=== PATIENT | female | born 1980 | race Caucasian/White ===

== ENCOUNTER → 2017-01-29 | Outpatient (CLI) | payer MEDICAID | LOC: FIMAGING 14:53 | PROVIDERS: ATTEND Nurse Practitioner Women's Health | DX: N63 Unspecified lump in breast (principal) | CPT/HCPCS: G0204 ==

== ENCOUNTER 2017-03-12 00:44 | Emergency (ER) | payer MEDICAID ==
[2017-03-12 00:56] VITALS: TEMP 98.2
--- NOTE | 2017-03-12 01:06 | CPEKG ---
Heart Rate: 79 RR Interval: 759 P-R Interval: 152 QRSD Interval: 90 QT Interval: 368 QTC Interval: 422 P [place]: 29 QRS [place]: 47 T Wave [place]: 48 EKG Severity - NORMAL ECG - EKG Impression: SINUS RHYTHM Electronically Signed By: Arcelia Ramos 12-Mar-2017 07:02:46
[2017-03-12 01:38] LABS: % IMMATURE GRANULYOCYTES 0.4 % (0.0-1.1); ABSOLUTE IMMATURE GRANULOCYTES 0.03 10^3/uL (0.00-0.10); ADD DIFF? NO; ADD MORPH? NO; ADD SCAN? NO; ATYPICAL LYMPHOCYTE FLAG 40 (0-99); FRAGMENT RBC FLAG 0 (0-99); HEMATOCRIT 45.4 % (38.0-47.0); HEMOGLOBIN 15.1 g/dL (12.6-16.3); LEFT SHIFT FLG 0 (0-99); LIPEMIA HEMOLYSIS FLAG 80 (0-99); MEAN CELL HEMOGLOBIN 33.1 pg (27.9-34.1); MEAN CELL HEMOGLOBIN CONCENTR. 33.3 g/dL (32.4-36.7); MEAN CELL VOLUME 99.6 fL (81.5-99.8); MEAN PLATELET VOLUME 10.8 fL (8.7-11.7); PLATELET CLUMPS FLAG 30 (0-99); PLATELET COUNT 253 10^3/uL (150-400); RED BLOOD CELL COUNT 4.56 10^6/uL (4.18-5.33); RED CELL DISTRIBUTION WIDTH 13.3 % (11.5-15.2)
[2017-03-12 01:44] LABS: ANION GAP 14 mEq/L (8-16); CALCIUM 9.5 mg/dL (8.5-10.4); CARBON DIOXIDE 26 mEq/l (22-31); CHLORIDE 104 mEq/L (97-110); CREATININE 0.7 mg/dL (0.6-1.0); GLOMERULAR FILTRATION RATE > 60; GLUCOSE 90 mg/dL (70-100); POTASSIUM 4.2 mEq/L (3.5-5.2); SODIUM 144 mEq/L (134-144)
[2017-03-12 01:56] LABS: TROPONIN I < 0.012 ng/mL (0-0.034)
--- NOTE | 2017-03-12 02:22 | EDPHY ---
H & P Stated Complaint: SOB HPI/ROS: HPI The patient presents with chest pain which has been present for the last 1 day and getting progressively worse. It is in her right chest, feels sharp in nature, worse with movement and deep breaths. She has had a cough for the last 6 months which is productive and worse in the morning. She does smoke cigarettes. Two weeks ago she had a lumpectomy of her left breast. She took ibuprofen for the pain today which did not help much.. REVIEW OF SYSTEMS Constitutional: No fever, no chills. Eyes: No discharge. ENT: No sore throat. Cardiovascular: Positive for chest pain, no palpitations. Respiratory: No cough, no shortness of breath. Gastrointestinal: No abdominal pain, no vomiting. Genitourinary: No hematuria. Musculoskeletal: No back pain. Skin: No rashes. Neurological: No headache. PMHx: Status post left-sided lumpectomy Soc Hx: Cigarette smoker PHYSICAL General Appearance: Alert, no distress Eyes: Pupils equal and round no pallor or injection ENT, Mouth: Mucous membranes moist Respiratory: There are no retractions, lungs are clear to auscultation Cardiovascular: Regular rate and rhythm, there is right-sided chest wall pain Gastrointestinal: Abdomen is soft and non-tender, no masses, bowel sounds normal Neurological: A&O, moves all extremities Skin: Warm and dry, no rashes Musculoskeletal: Neck is supple non tender Extremities: symmetrical, full range of motion Psychiatric: Patient is oriented X 3, there is no agitation Source: Patient Exam Limitations: No limitations - Personal History LMP (Females 10-55): Now Current Tetanus/Diphtheria Vaccine: Yes Current Tetanus Diphtheria and Acellular Pertussis (TDAP): Yes Tetanus Vaccine Date: 2013 - Medical/Surgical History Hx Asthma: No Hx Chronic Respiratory Disease: No Hx Diabetes: No Hx Cardiac Disease: No Hx Renal Disease: No Hx Cirrhosis: No Hx Alcoholism: No Hx HIV/AIDS: No Hx Splenectomy or Spleen Trauma: No Other PMH: L lumpectomy, PNA, - Social History Smoking Status: Current every day smoker Constitutional: Initial Vital Signs Temperature (C) 36.8 C 03/12/17 00:52 Heart Rate 96 03/12/17 00:52 Respiratory Rate 16 03/12/17 00:52 Blood Pressure 133/97 H 03/12/17 00:52 O2 Sat (%) 96 07/13/17 00:52 O2 Delivery Mode Room Air Allergies/Adverse Reactions: No Known Allergies Allergy (Unverified 03/12/17 00:50) Home Medications: Medication Instructions Recorded Subutex 04/24/13 Calcium 03/12/17 Oregano Oil 03/12/17 VITAMIN D 03/12/17 Vitamin A 03/12/17 Vitamin B-12 03/12/17 Vitamin B6 03/12/17 Zinc 03/12/17 Medical Decision Making Differential Diagnosis: This is a 36-year-old healthy female who presents with chest pain for the last 1 day. On exam, she is well-appearing, she has normal vital signs, she has chest wall tenderness. Differential diagnosis includes costochondritis, pulmonary embolism, pericarditis. In the emergency room, labs and studies were checked and were unremarkable. Including D-dimer, EKG, chest x-ray. I feel she most likely is suffering from costochondritis and I have explained this to her. I have recommended that she use ibuprofen for pain. She is in agreement with this plan. - Data Points Laboratory Results: Laboratory Results 03/12/17 01:00 03/12/17 01:00 03/12/17 03/12/17 03/12/17 01:00 01:00 01:00 WBC 8.12 10^3/uL 10^3/uL (3.80-9.50) RBC 4.56 10^6/uL 10^6/uL (4.18-5.33) Hgb 15.1 g/dL g/dL (12.6-16.3) Hct 45.4 % % (38.0-47.0) MCV 99.6 fL fL (81.5-99.8) MCH 33.1 pg pg (27.9-34.1) MCHC 33.3 g/dL g/dL (32.4-36.7) RDW 13.3 % % (11.5-15.2) Plt Count 253 10^3/uL 10^3/uL (150-400) MPV 10.8 fL fL (8.7-11.7) Neut % (Auto) 46.7 % % (39.3-74.2) Lymph % (Auto) 43.0 % % (15.0-45.0) [place] % (Auto) 7.3 % % (4.5-13.0) Eos % (Auto) 1.6 % % (0.6-7.6) Baso % (Auto) 1.0 % % (0.3-1.7) Nucleat RBC Rel Count 0.0 % % (0.0-0.2) Absolute Neuts (auto) 3.80 10^3/uL 10^3/uL (1.70-6.50) Absolute Lymphs (auto) 3.49 10^3/uL H 10^3/uL (1.00-3.00) Absolute Monos (auto) 0.59 10^3/uL 10^3/uL (0.30-0.80) Absolute Eos (auto) 0.13 10^3/uL 10^3/uL (0.03-0.40) Absolute Basos (auto) 0.08 10^3/uL 10^3/uL (0.02-0.10) Absolute Nucleated RBC 0.00 10^3/uL 10^3/uL (0-0.01) Immature Gran % 0.4 % % (0.0-1.1) Immature Gran # 0.03 10^3/uL 10^3/uL (0.00-0.10) D-Dimer 0.47 ug/mLFEU ug/mLFEU (0.00-0.50) Sodium 144 mEq/L mEq/L (134-144) Potassium 4.2 mEq/L mEq/L (3.5-5.2) Chloride 104 mEq/L mEq/L (97-110) Carbon Dioxide 26 mEq/l mEq/l (22-31) Anion Gap 14 mEq/L mEq/L (8-16) BUN 12 mg/dL mg/dL (7-23) Creatinine 0.7 mg/dL mg/dL (0.6-1.0) Estimated GFR > 60 Glucose 90 mg/dL mg/dL (70-100) Calcium 9.5 mg/dL mg/dL (8.5-10.4) Troponin I < 0.012 ng/mL ng/mL (0-0.034) Departure - Departure Disposition: Home, Routine, Self-Care Clinical Impression: Chest pain Qualifiers: Chest pain type: chest pain on breathing Qualified Code(s): R07.1 - Chest pain on breathing Condition: Good Instructions: Pleurisy (ED) Additional Instructions: You should take ibuprofen 400 mg every 6 hours as needed for pain. You can use ice packs or heat packs as well. You should be better in the next 1-2 weeks. Referrals: LINDA LONG [Other] - As per Instructions
[2017-03-12 02:37] VITALS: BP 103/59; PULSE 59; RESP 19; O2SAT 93
== END 2017-03-12 02:37 | disposition home or self-care (01) ==
DX: R07.1 Chest pain on breathing (principal); F17.210 Nicotine dependence, cigarettes, uncomplicated

== ENCOUNTER 2017-04-08 21:47 | Emergency (ER) | payer MEDICAID ==
[2017-04-08 22:00] VITALS: TEMP 99.1
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
[2017-04-08 23:12] VITALS: BP 115/85; PULSE 97; RESP 18; O2SAT 92
== END 2017-04-08 23:11 | disposition home or self-care (01) ==
DX: S62.307A Unspecified fracture of fifth metacarpal bone, left hand, initial encounter for closed fracture (principal); S63.90XA Sprain of unspecified part of unspecified wrist and hand, initial encounter; V86.99XA Unspecified occupant of other special all-terrain or other off-road motor vehicle injured in nontraffic accident, initial encounter
CPT/HCPCS: L3925

== ENCOUNTER 2017-09-03 20:02 | Emergency (ER) | payer MEDICAID ==
[2017-09-03 20:13] VITALS: TEMP 98.4
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
[2017-09-03] MEDS ORDERED: LORazepam 2 MG/ML INJ IVP ONE (21:19)
[2017-09-03] MEDS ORDERED: NS 1,000 ML IV ONE (21:19)
[2017-09-03 21:42] LABS: PLATELET COUNT 175 10^3/uL (150-400)
[2017-09-03 21:48] VITALS: O2SAT 96
[2017-09-03 22:30] VITALS: BP 90/79; PULSE 85; RESP 16
== END 2017-09-03 22:29 | disposition home or self-care (01) ==
DX: K58.1 Irritable bowel syndrome with constipation (principal); F43.9 Reaction to severe stress, unspecified; E86.9 Volume depletion, unspecified; F17.200 Nicotine dependence, unspecified, uncomplicated
CPT/HCPCS: 96374; J2060

== ENCOUNTER → 2018-05-27 | Outpatient (CLI) | payer MEDICAID | LOC: FIMAGING 10:22 | PROVIDERS: ATTEND Physician Assistant | DX: K70.10 Alcoholic hepatitis without ascites (principal); R16.0 Hepatomegaly, not elsewhere classified; K70.0 Alcoholic fatty liver; F10.10 Alcohol abuse, uncomplicated ==

== ENCOUNTER 2018-07-07 08:39 | Day surgery (SDC) | payer MEDICAID ==
[2018-07-07] MEDS ORDERED: LIDOCAINE 1% 2 ML INJ ID PRN (08:58)
[2018-07-07] MEDS ORDERED: LR 1,000 ML IV ONE (08:58)
--- NOTE | 2018-07-07 10:10 | PDGENHP ---
History and Physical - Chief Complaint abdominal pain, abnormal xrays - History of Present Illness pleasant 38 yr old with hx of ETOH abuse presents to [facility] for EGD/COLON to work- up abd pain and abnormal xrays. Pt reports GERD, nausea, and constipation. History Information - Allergies/Home Medication List Allergies/Adverse Reactions: No Known Allergies Allergy (Verified 04/15/18 09:20) Home Medications: Buprenorphine HCl/Naloxone HCl [Suboxone 2 mg-0.5 mg SL Film] 0.5 film SL BID [Last Taken 04/14/18] Cetirizine [ZyrTEC 10 mg (*)] 10 mg PO DAILY 04/15/18 [Last Taken 04/14/18] Herbals/Supplements -Info Only 1 ea PO DAILY 04/15/18 [Last Taken Unknown] I have personally reviewed and updated: family history, medical history, social history, surgical history - Past Medical History no pertinent PMH Additional medical history: Suspected alcohol abuse versus alcoholism. Reported irritable bowel syndrome. Denies any other medical history but preliminary review of her home med list indicates Suboxone and Ativan, for unclear reasons - Surgical History Reports: no pertinent surgical hx Additional surgical history: Left breast biopsy 2017. Last Pap smear approximately 2 years ago - Family History Positive for: cancer Additional family history: Family history of kidney stones, no family history of inflammatory bowel disorders, liver disorders. Sibling with drug addiction, second-degree relative with alcoholism - Social History Smoking Status: Current some day smoker Alcohol Use: Heavy Drug Use: None Additional social history: Takes care of 4 kids Review of Systems Review of Systems: ROS: 10pt was reviewed & negative except for what was stated in HPI & below Physical Exam Physical Exam: Temp Pulse Resp BP Pulse Ox 37.3 C 73 10 L 119/79 91 L 07/07/18 09:12 07/07/18 09:12 07/07/18 09:12 07/07/18 09:12 07/07/18 09:12 Constitutional: no apparent distress Eyes: PERRL Ears, Nose, Mouth, Throat: moist mucous membranes Cardiovascular: regular rate and rhythym Respiratory: no respiratory distress Gastrointestinal: normoactive bowel sounds Skin: warm Musculoskeletal: full muscle strength Neurologic: AAOx3 Psychiatric: interacting appropriately Assessment & Plan Assessment: GERD, Nausea, Abdominal Pain, Abn CT Plan: EGD and Colonoscopy
[2018-07-07] MEDS ORDERED: PROPOFOL/EMULSION 500 MG/50 ML BOTTLE IV ONE (10:23)
--- NOTE | 2018-07-07 10:45 | GIREPORT ---
[facility] Surgical Services - Endoscopy Department Patient Name: Lian Lea Procedure Date: 07/07/2018 10:04 AM Patient Type: Outpatient Attending MD/ ER Physician: Argentina Mason MD Procedure: Upper GI endoscopy Indications: Epigastric abdominal pain, Dyspepsia, Heartburn Providers: Argentina Mason MD Medicines: Sedation Required Anesthesia Staff Assistance Complications: No immediate complications. Description of Procedure: After obtaining informed consent, the endoscope was passed under direct vision. Throughout the procedure, the patient's blood pressure, pulse, and oxygen saturations were monitored continuously. The Endoscope was intro duced through the mouth, and advanced to the second part of duodenum. [facility] was accomplished without difficulty. The patient tolerated th e procedure well. Findings: The examined esophagus was normal. Diffuse mild inflammation characterized by congestion (edema) and eryth edmundo was found in the entire examined stomach. Biopsies were taken with a co ld forceps for histology. The examined duodenum was normal. Biopsies for histology were taken wit h a cold forceps for evaluation of celiac disease. Estimated Blood Loss: Estimated blood loss: none. Post Op Diagnosis: - Normal esophagus. - Gastritis. Biopsied. - Normal examined duodenum. Biopsied. Recommendation: - Written discharge instructions were provided to the patient. - The signs and symptoms of potential delayed complications were discus sed with the patient. - Patient has a contact number available for emergencies. - Return to normal activities tomorrow. - Resume previous diet. - Continue present medications. - Await pathology results. Attending Participation: I personally performed the entire procedure. Argentina Mason MD Argentina Mason MD 07/07/2018 10:44:57 AM This report has been signed electronicallyArgentina Mason MD Number of Addenda: 0 Note Initiated On: 07/07/2018 10:04 AM [email or web address]
--- NOTE | 2018-07-07 10:46 | GIREPORT ---
[facility] Surgical Services - Endoscopy Department Patient Name: Lian Lea Procedure Date: 07/07/2018 10:05 AM Patient Type: Outpatient Attending MD/ ER Physician: Argentina Mason MD Procedure: Colonoscopy Indications: Generalized abdominal pain, Abnormal CT of the GI tract, Change in junior l habits Providers: Argentina Mason MD Medicines: Sedation Required Anesthesia Staff Assistance Complications: No immediate complications. Description of Procedure: After obtaining informed consent, the scope was passed under direct vis ion. Throughout the procedure, the patient's blood pressure, pulse, and oxyg en saturations were monitored continuously. The Colonoscope with irrigatio n channel was introduced through the anus and advanced to the cecum, identified by appendiceal orifice and ileocecal valve. The colonoscopy was performed without difficulty. The patient tolerated the procedure well. The quality of the bowel preparation was good. The ileocecal valve, appendi ceal orifice, and rectum were photographed. Findings: The colon (entire examined portion) appeared normal. Biopsies were take n with a cold forceps for histology. Estimated Blood Loss: Estimated blood loss: none. Post Op Diagnosis: - The entire examined colon is normal. Biopsied. Recommendation: - Written discharge instructions were provided to the patient. - The signs and symptoms of potential delayed complications were discus sed with the patient. - Patient has a contact number available for emergencies. - Return to normal activities tomorrow. - Resume previous diet. - Continue present medications. - Await pathology results. - Repeat colonoscopy in 5 years for screening purposes. Attending Participation: I personally performed the entire procedure. Argentina Mason MD Argentina Mason MD 07/07/2018 10:46:19 AM This report has been signed electronicallyArgentina Mason MD Number of Addenda: 0 Note Initiated On: 07/07/2018 10:05 AM Total Procedure Duration Time 0 hours 8 minutes 59 seconds [email or web address]
[2018-07-07] MEDS ORDERED: fentaNYL 100 MCG/2 ML INJ IVP PRN (10:52)
[2018-07-07] MEDS ORDERED: ONDANSETRON 4 MG/2 ML VIAL IVP PRN (10:52)
[2018-07-07] MEDS ORDERED: NALOXONE HCL 0.4 MG/ML INJ IVP PRN (10:52)
--- NOTE | 2018-07-07 10:52 | POSTANESTH ---
Post Anesthetic Evaluation Cardiovascular Status: Normal, Stable Respiratory Status: Normal, Stable Level of Consciousness/Mental Status: Can Participate in Eval Pain Control: Adequate, Prn Tx Ordered Nausea/Vomiting Control: Adequate, Prn Tx Ordered Complications Possibly Related to Anesthesia: None Noted
--- NOTE | 2018-07-07 10:52 | PDANEPAE ---
ANE Past Medical History - Cardiovascular History Hx Hypertension: No Hx Arrhythmias: No Hx Chest Pain: No Hx Coronary Artery / Peripheral Vascular Disease: No Hx CHF / Valvular Disease: No Hx Palpitations: No - Pulmonary History Hx COPD: No Hx Asthma/Reactive Airway Disease: No Hx Recent Upper Respiratory Infection: No Hx Oxygen in Use at Home: No Hx Sleep Apnea: No Sleep Apnea Screening Result - Last Documented: Negative - Neurologic History Hx Cerebrovascular Accident: No Hx Seizures: No Hx Dementia: No - Endocrine History Hx Diabetes: No - Renal History Hx Renal Disorders: No - Liver History Hx Hepatic Disorders: No - Neurological & Psychiatric Hx Hx Neurological and Psychiatric Disorders: No - Cancer History Hx Cancer: No - Congenital Disorder History Hx Congenital Disorders: No - GI History Hx Gastrointestinal Disorders: Yes Gastrointestinal History Comment: NAUSEA. ACID REFLUX. ABD CRAMPING. CONSTIPATION - Other Health History Other Health History: BUPRENORPHINE/NALOXONE FOR OPIOID DEPENDENCE - Chronic Pain History Chronic Pain: Yes (ABD PAIN) - Surgical History Prior Surgeries: LUMPECTOMY ANYI. WISDOM TEETH ANE Review of Systems Review of Systems: - Exercise capacity METS (RN): 5 METS ANE Patient History - Allergies Allergies/Adverse Reactions: No Known Allergies Allergy (Verified 04/15/18 09:20) - Home Medications Home Medications: Buprenorphine HCl/Naloxone HCl [Suboxone 2 mg-0.5 mg SL Film] 0.5 film SL BID [Last Taken 04/14/18] Cetirizine [ZyrTEC 10 mg (*)] 10 mg PO DAILY 04/15/18 [Last Taken 04/14/18] Herbals/Supplements -Info Only 1 ea PO DAILY 04/15/18 [Last Taken Unknown] - NPO status NPO Since - Liquids (Date): 07/07/18 NPO Since - Liquids (Time): 03:00 NPO Since - Solids (Date): 07/04/18 NPO Since - Solids (Time): 09:00 - Smoking Hx Smoking Status: Current some day smoker - Alcohol Use Alcohol Use: Heavy - Family Anes Hx Family Hx Anesthesia Complications: NEG ANE Labs/Vital Signs - Vital Signs Blood Pressure: 119/79 Heart Rate: 73 Respiratory Rate: 10 O2 Sat (%): 91 Height: 167.64 cm Weight: 62.142 kg ANE Physical Exam - Airway Neck exam: FROM Mallampati Score: Class 1 Mouth exam: normal dental/mouth exam - Pulmonary Pulmonary: no respiratory distress - Cardiovascular Cardiovascular: regular rate and rhythym - ASA Status ASA Status: I ANE Anesthesia Plan Anesthesia Plan: general endotracheal anesthesia, GA with mask Urgent/Emergent Case: Romelia sheehan completed preop but documented later for safe timely pt care
[2018-07-07 12:17] VITALS: BP 121/79
== END 2018-07-07 12:18 | disposition home or self-care (01) ==
LOC: FSGY 08:39
PROVIDERS: ATTEND Internal Medicine Gastroenterology
PROC: 0DB98ZX Excision of Duodenum, Via Natural or Artificial Opening Endoscopic, Diagnostic (ICD-10-PCS; principal; 2018-07-07 10:00)
PROC: 0DB68ZX Excision of Stomach, Via Natural or Artificial Opening Endoscopic, Diagnostic (ICD-10-PCS; principal; 2018-07-07 10:00)
PROC: 0DBE8ZX Excision of Large Intestine, Via Natural or Artificial Opening Endoscopic, Diagnostic (ICD-10-PCS; principal; 2018-07-07 10:00)
DX: K29.80 Duodenitis without bleeding (principal); K21.9 Gastro-esophageal reflux disease without esophagitis; F10.11 Alcohol abuse, in remission; F17.210 Nicotine dependence, cigarettes, uncomplicated
CPT/HCPCS: J2704

== ENCOUNTER 2018-12-01 17:07 | Emergency (ER) | payer MEDICAID ==
--- NOTE | 2018-12-01 17:20 | EDPHY ---
H & P Stated Complaint: Root canal 2wks [employer], L face numb and CP x 1wk, denies relief Time Seen by Provider: 12/01/18 17:19 - Personal History Current Tetanus/Diphtheria Vaccine: Yes Tetanus Vaccine Date: 2013 - Medical/Surgical History Hx Asthma: No Hx Chronic Respiratory Disease: No Hx Diabetes: No Hx Cardiac Disease: No Hx Renal Disease: No Hx Cirrhosis: No Hx Alcoholism: No Hx HIV/AIDS: No Hx Splenectomy or Spleen Trauma: No Other PMH: L lumpectomy, - Social History Smoking Status: Current every day smoker Constitutional: Initial Vital Signs Temperature (C) 37.1 C 12/01/18 17:16 Heart Rate 98 12/01/18 17:16 Respiratory Rate 18 12/01/18 17:16 Blood Pressure 155/103 H 12/01/18 17:16 O2 Sat (%) 95 12/01/18 17:16 O2 Delivery Mode Room Air Allergies/Adverse Reactions: No Known Allergies Allergy (Verified 12/01/18 17:16) Home Medications: Medication Instructions Recorded Buprenorphine HCl/Naloxone HCl 0.5 film SL BID 04/15/18 [Suboxone 2 mg-0.5 mg SL Film] Cetirizine [ZyrTEC 10 mg (*)] 10 mg PO DAILY 04/15/18 Herbals/Supplements -Info Only 1 ea PO DAILY 04/15/18 Omeprazole 20 mg PO DAILY #30 capsule. 04/18/18 Ondansetron Odt [Zofran Odt 4 mg 4 mg PO Q6H PRN #20 tab 04/18/18 (*)] Medical Decision Making - Diagnostics Imaging Results: Imaging Impressions Chest X-Ray 12/01/18 17:25 Impression: No acute findings in the chest. Imaging: I viewed and interpreted images myself ED Course/Re-evaluation: CHIEF COMPLAINT: Chest pain, left arm numbness HISTORY OF PRESENT ILLNESS: The patient is a 38 y/o female with a history of a root canal and anxiety complaining of chest pain and left arm numbness. The patient had a root canal 2 weeks ago for a recurrent tooth infection that would not improve after antibiotics. After the root canal her facial pain improved. Last week she went to [place] and developed abnormal symptoms. She felt car sick, which has never happened. She then developed left-sided chest pressure, left arm numbness, shooting pain in her legs, and numbness in her feet. She also feels like her heart is "pounding". Due to these symptoms today, she felt short of breath and lightheaded. She is scheduled to see her PCP tomorrow. She does have a familial history of heart attacks in young females, which concerned her. No fever, headache, body aches, heart palpitations, cough, abdominal pain, urinary or bowel complaints, paresthesias. REVIEW OF SYSTEMS: A comprehensive 10 system review of systems is otherwise negative aside from elements mentioned in the history of present illness and medical decision making. PHYSICAL EXAM: HR, BP, O2 Sat, RR. Temp noted General Appearance: Anxious, alert, well hydrated, appropriate, and non-toxic appearing. Head: Atraumatic without scalp tenderness or obvious injury Eyes: Pupils equal, round, reactive to light and accommodation, EOMI, no trauma , no injection. Ears: Clear bilaterally, no perforation, normal landmarks Nose: Atraumatic, no rhinorrhea, clear. Throat: There is no erythema or exudates, no lesions, normal tonsils, mucus membranes moist. Neck: Supple, 2+ carotid upstroke, nontender, no lymphadenopathy. Respiratory: No retractions, no distress, no wheezes, and no accessory muscle use. Lungs are clear to auscultation bilaterally. Cardiovascular: Non-reproducible chest pressure. Regular rate and rhythm, no murmurs, rubs, or gallops. Bilateral carotid, radial, dorsalis pedis, and posterior tibial pulses intact. Good capillary refill all extremities. Gastrointestinal: Abdomen is soft, nontender, non-distended, no masses, no rebound, no guarding, no peritoneal signs. Musculoskeletal: Normal active ROM of all extremities, atraumatic. Neurological: Alert, appropriate, and interactive. The patient has normal DTRs and non-focal cranial nerves, motor, sensory, and cerebellar exam. Skin: No rashes, good turgor, no nodules on palpation. Past medical history: Anxiety Past surgical history: Root canal due to infection, left lumpectomy Family history: Cardiac events in females at a young age Social history: , lives in [place], not employed DIAGNOSTICS/PROCEDURES/CRITICAL CARE TIME: EKG: The 12 lead EKG was interpreted by myself as sinus rhythm with a rate of 87. See hard copy and/or "tracemaster" electronic copy for interpretation. Chest x-ray: No acute findings. DIFFERENTIAL DIAGNOSIS: The differential diagnosis for the patient's chest pain included but was not limited to anxiety, myocardial ischemia, pulmonary embolus, chest wall pain, pleural inflammation, and pulmonary infectious causes. MEDICAL DECISION MAKING: The patient is a 38 y/o female with a history of a root canal and anxiety presenting with chest pain and left arm numbness. Last week she developed left- sided chest pressure, left arm numbness, shooting pain in her legs, and numbness in her feet. She also feels like her heart is "pounding". Due to these symptoms today, she felt short of breath and lightheaded. On exam she has non- reproducible chest pressure. Labs, EKG, and chest x-ray ordered; non- reproducible chest pressure; 81mg PO Aspirin and 500mL IV NS administered. 1728: I interpreted patient's EKG as sinus rhythm with a rate of 87. 1810: Patient's x-ray and labs are unremarkable. 181: Reassessed patient and discussed imaging and laboratory findings. Patient is most likely having anxiety. I have advised her to follow up with her PCP. Return precautions provided; patient is comfortable with this plan. - Data Points Laboratory Results: Laboratory Results 12/01/18 17:35 12/01/18 17:35 12/01/18 12/01/18 12/01/18 17:35 17:35 17:35 WBC RBC Hgb Hct MCV MCH MCHC RDW Plt Count MPV Neut % (Auto) Lymph % (Auto) [place] % (Auto) Eos % (Auto) Baso % (Auto) Nucleat RBC Rel Count Absolute Neuts (auto) Absolute Lymphs (auto) Absolute Monos (auto) Absolute Eos (auto) Absolute Basos (auto) Absolute Nucleated RBC Immature Gran % Immature Gran # D-Dimer 0.27 ug/mLFEU ug/mLFEU (0.00-0.50) Sodium 135 mEq/L mEq/L (135-145) Potassium 4.1 mEq/L mEq/L (3.5-5.2) Chloride 102 mEq/L mEq/L (97-110) Carbon Dioxide 22 mEq/l mEq/l (22-31) Anion Gap 11 mEq/L mEq/L (6-14) BUN 6 mg/dL L mg/dL (7-23) Creatinine 0.5 mg/dL L mg/dL (0.6-1.0) Estimated GFR > 60 Glucose 109 mg/dL H mg/dL (70-100) Calcium 9.2 mg/dL mg/dL (8.5-10.4) NT-Pro-B Natriuret Pep 132 pg/mL H pg/mL (0-125) Beta HCG, Qual NEGATIVE 12/01/18 17:35 WBC 4.61 10^3/uL 10^3/uL (3.80-9.50) RBC 4.43 10^6/uL 10^6/uL (4.18-5.33) Hgb 14.2 g/dL g/dL (12.6-16.3) Hct 42.7 % % (38.0-47.0) MCV 96.4 fL fL (81.5-99.8) MCH 32.1 pg pg (27.9-34.1) MCHC 33.3 g/dL g/dL (32.4-36.7) RDW 14.4 % % (11.5-15.2) Plt Count 149 10^3/uL L 10^3/uL (150-400) MPV 10.3 fL fL (8.7-11.7) Neut % (Auto) 63.6 % % (39.3-74.2) Lymph % (Auto) 28.2 % % (15.0-45.0) [place] % (Auto) 6.5 % % (4.5-13.0) Eos % (Auto) 0.4 % L % (0.6-7.6) Baso % (Auto) 1.1 % % (0.3-1.7) Nucleat RBC Rel Count 0.0 % % (0.0-0.2) Absolute Neuts (auto) 2.93 10^3/uL 10^3/uL (1.70-6.50) Absolute Lymphs (auto) 1.30 10^3/uL 10^3/uL (1.00-3.00) Absolute Monos (auto) 0.30 10^3/uL 10^3/uL (0.30-0.80) Absolute Eos (auto) 0.02 10^3/uL L 10^3/uL (0.03-0.40) Absolute Basos (auto) 0.05 10^3/uL 10^3/uL (0.02-0.10) Absolute Nucleated RBC 0.00 10^3/uL 10^3/uL (0-0.01) Immature Gran % 0.2 % % (0.0-1.1) Immature Gran # 0.01 10^3/uL 10^3/uL (0.00-0.10) D-Dimer Sodium Potassium Chloride Carbon Dioxide Anion Gap BUN Creatinine Estimated GFR Glucose Calcium NT-Pro-B Natriuret Pep Beta HCG, Qual Medications Given: Discontinued Medications Aspirin (Aspirin) 324 mg PO EDNOW ONE Stop: 12/01/18 17:26 Last Admin: 12/01/18 17:48 Dose: 324 mg Sodium Chloride (Ns) 500 mls @ 1,000 mls/hr IV EDNOW ONE PRN Reason: Protocol Stop: 12/01/18 17:54 Last Admin: 12/01/18 17:49 Dose: 500 mls Departure - Departure Disposition: Home, Routine, Self-Care Clinical Impression: Anxiety Chest pain Qualifiers: Chest pain type: other chest pain Qualified Code(s): R07.89 - Other chest pain Condition: Good Instructions: Chest Pain (ED), Anxiety (ED) Additional Instructions: 1. Follow-up with your primary doctor within 72 hours. 2. Return to the Emergency Department for fever, chest pain, shortness of breath , increasing pain or other worsening of condition. Referrals: Jose G Troy PA [Primary Care Provider] - As per Instructions Report Scribed for: Toni Perez Report Scribed by: Chaparrita Guardado Date of Report: 12/01/18 Time of Report: 18:16
[2018-12-01] MEDS ORDERED: ASPIRIN 81 MG CHEWABLE TAB PO ONE (17:25)
[2018-12-01] MEDS ORDERED: NS 500 ML IV ONE (17:25)
[2018-12-01 17:48] LABS: PLATELET COUNT 149 10^3/uL (150-400)
[2018-12-01 18:20] VITALS: BP 141/97
--- NOTE | 2018-12-01 19:42 | CPEKG ---
Test Reason : OPEN Blood Pressure : / mmHG Vent. Rate : 087 BPM Atrial Rate : 086 BPM P-R Int : 130 ms QRS Dur : 087 ms QT Int : 359 ms P-R-T Axes : 040 016 047 degrees QTc Int : 432 ms Sinus rhythm Confirmed by Toni Perez ([id number]) on 12/01/2018 7:42:30 PM Referred By: Toni Perez Confirmed By:Toni Perez
== END 2018-12-01 18:20 | disposition home or self-care (01) ==
DX: F41.9 Anxiety disorder, unspecified (principal); R07.89 Other chest pain; R20.2 Paresthesia of skin; F17.200 Nicotine dependence, unspecified, uncomplicated; E86.9 Volume depletion, unspecified
CPT/HCPCS: 84484-ER

== ENCOUNTER 2018-12-08 01:58 | Emergency (ER) | payer MEDICAID ==
--- NOTE | 2018-12-08 02:26 | EDPHY ---
H & P Stated Complaint: pt had dental work now having tooth pain and CP Time Seen by Provider: 12/08/18 02:13 HPI/ROS: Chief Complaint: Left-sided body numb, chest discomfort HPI: 29-year-old woman's been complaining of 1 month of worsening left-sided body numbness with some left chest discussed. Patient says that this began after she had a root canal in the left upper tip. She has had worst progressive numbness on the left side for her left had face neck arm and leg. Patient is also having some persistent left-sided chest discomfort but she was seen here several days ago negative ECG was told that musculoskeletal. This is persisted. No shortness rate she wet of oral today and was drink some alcohol. She when he is lying in bed and became concerned because felt that the numbness was versus sting. She described it as a dull sensation from her left head to her feet. No did walking. No vision changes. No diffuse speaking swallowing. No fevers or chills but cough and neck pain. No wrist. No prior history. ROS: 10 systems were reviewed and were negative except those elements noted in the HPI. PMH: Done Social History: No smoking, occasional alcohol, no recreational drug use Family History: non-contributory Physical Exam: Gen: Awake, Alert, No Distress HEENT: Nose: no rhinorrhea Eyes: PERRLA, EOMI Mouth: Moist mucosa Neck: Supple, no JVD Chest: nontender, lungs clear to auscultation Heart: S1, S2 normal, no murmur Abd: Soft, non-tender, no guarding Back: no CVA tenderness, no midline tenderness Ext: no edema, non-tender Skin: no rash Neuro: CN II-XII intact, Sensation grossly intact, Strength 5/5 in bilateral upper and lower extremities - Personal History LMP (Females 10-55): 8-14 Days Ago Current Tetanus/Diphtheria Vaccine: Yes Current Tetanus Diphtheria and Acellular Pertussis (TDAP): Yes Tetanus Vaccine Date: 2013 - Medical/Surgical History Hx Asthma: No Hx Chronic Respiratory Disease: No Hx Diabetes: No Hx Cardiac Disease: No Hx Renal Disease: No Hx Cirrhosis: No Hx Alcoholism: No Hx HIV/AIDS: No Hx Splenectomy or Spleen Trauma: No Other PMH: L lumpectomy, root canal - Social History Smoking Status: Current every day smoker Constitutional: Initial Vital Signs Temperature (C) 36.6 C 12/08/18 02:01 Heart Rate 97 12/08/18 02:01 Respiratory Rate 16 12/08/18 02:01 Blood Pressure 136/95 H 12/08/18 02:01 O2 Sat (%) 92 12/08/18 02:01 O2 Delivery Mode Room Air Allergies/Adverse Reactions: No Known Allergies Allergy (Verified 12/08/18 02:04) Home Medications: Medication Instructions Recorded Buprenorphine HCl/Naloxone HCl 0.5 film SL BID 04/15/18 [Suboxone 2 mg-0.5 mg SL Film] Herbals/Supplements -Info Only 1 ea PO DAILY 04/15/18 Medical Decision Making ED Course/Re-evaluation: Pre 8-year-old woman presenting certain about numbness on the entire left side of her body. This occurred after she had a root canal left. Patient is describing decreased sensation to light touch from her forehead cheek back arm trunk and left leg. Given the distribution that is entirely isolated to all of the left side of her body does not fit with a central nervous system neurologic pattern. There for did on like to be a localized central neurologic lesion has symptoms are intermittent by both eyes of her hemispheres. She has absolute symptoms on the right. Has some persistent chest discomfort. Her symptoms are also on the same side that she had her root canal and there is no evidence of infection or abscess. She has otherwise been well appearing. Again given the location of her symptoms the not fit a neurologic pattern and is unlikely to be acute neurologic process. Is been present for the last month. I do not feel she needs any emergent imaging at this time. Plan will be to discharge with follow-up with primary care physician. Will follow up with neurology half this persists, returning concerns. The patient is agreement with this plan. Departure - Departure Disposition: Home, Routine, Self-Care Clinical Impression: Paresthesia Condition: Good Instructions: Paresthesia (ED) Additional Instructions: Follow up with primary care physician in 2-3 days for further evaluation. Follow-up with Neurology in about a week if symptoms are not improving. Return to the emergency department for worsening numbness, weakness, difficulty Ng you for itching you're extremities or walking, difficulty speaking, or any other concerns. Referrals: Jose G Troy PA [Primary Care Provider] - As per Instructions Manoj Rosenberg MD [Medical Doctor] - As per Instructions
[2018-12-08 02:42] VITALS: BP 133/89
== END 2018-12-08 02:33 | disposition home or self-care (01) ==
DX: R20.2 Paresthesia of skin (principal); R07.9 Chest pain, unspecified; F17.200 Nicotine dependence, unspecified, uncomplicated

== ENCOUNTER → 2018-12-24 | Outpatient (CLI) | payer MEDICAID | LOC: FIMAGING 12:58 | DX: N83.292 Other ovarian cyst, left side (principal) ==

== ENCOUNTER → 2019-01-10 | Outpatient (CLI) | payer MEDICAID | LOC: FIMAGING 19:47 | PROVIDERS: ATTEND Physician Assistant Medical | DX: R51 Headache (principal) | CPT/HCPCS: 70551-PN ==

== ENCOUNTER 2019-01-30 10:44 | Emergency (ER) | payer MEDICAID | END 2019-01-30 13:45 | disposition home or self-care (01) ==